=== PATIENT | female | born 1995 | race Two or more races ===

== ENCOUNTER → 2022-05-06 07:44 | Outpatient (CLI) | payer OTHER, SELFPAY ==
--- NOTE | 2022-05-06 07:54 | US_ITS ---
FINAL REPORT CLINICAL HISTORY: RT BREAST MASS-- dr lyons-- core FINDINGS: ULTRASOUND-GUIDED RIGHT BREAST CORE BIOPSY TECHNIQUE: Limited images were obtained to localize region of interest. The right breast was prepped in a routine sterile fashion and locally anesthetized with 1% lidocaine. Standard written informed consent was obtained. The biopsy needle was positioned within the outer periphery of the lesion. A total of 2 passes were made with a 16 gauge core biopsy needle. Core specimens appears somewhat fragmented. There was likely a component of complex cystic fluid. An 18-gauge needle was then passed into the lesion with further aspiration of complex fluid also submitted for pathologic evaluation. The lesion was nearly decompressed after the combination of core biopsies and aspiration. No biopsy marker clip was placed since lesion was considered highly likely to be a complex cyst. No mammogram was performed. Lesion had not been evaluated mammographically prior to the procedure. Procedure was well tolerated . CONCLUSION: 1. Technically successful ultrasound guided core biopsy and aspiration of right breast lesion as above. Lesion favored to represent a complex cyst. Authenticated and ERN
== END ==
PROVIDERS: PCP Registered Nurse
DX: N63.10 Unspecified lump in the right breast, unspecified quadrant (principal)
CPT/HCPCS: 19083